=== PATIENT | male | born 1955 | race Caucasian/White ===

== ENCOUNTER 2018-12-28 12:44 | Day surgery (SDC) | payer OTHER ==
[2018-12-28] MEDS ORDERED: PROPOFOL 20 ML (16:34)
== END 2018-12-28 17:39 | disposition home or self-care (01) ==
LOC: GIL 12:44
DX: D12.0 Benign neoplasm of cecum (principal); D12.8 Benign neoplasm of rectum; I10 Essential (primary) hypertension; Z86.73 Personal history of transient ischemic attack (TIA), and cerebral infarction without residual deficits
CPT/HCPCS: 45378; 88305